=== PATIENT | female | born 1975 | race Caucasian/White ===

== ENCOUNTER 2017-01-01 13:04 | Emergency (ER) | payer MEDICAID ==
[2017-01-01] MEDS ORDERED: KETOROLAC 30 MG/ML VIAL ONE (14:38)
== END 2017-01-01 15:21 | disposition home or self-care (01) ==
LOC: ER 13:48
DX: R51 Headache (principal); J01.10 Acute frontal sinusitis, unspecified
CPT/HCPCS: 36415; 80053; 81003; 83690; 85025; 96374